=== PATIENT | male | born 1955 | race Hispanic/Latino ===

== ENCOUNTER 2017-11-15 11:43 | Emergency (ER) | payer BC ==
[2017-11-15 11:53] VITALS: TEMP 98.5
[2017-11-15 12:03] LABS: URINE BILIRUBIN NEGATIVE (NEGATIVE); URINE BLOOD NEGATIVE (NEGATIVE); URINE CLARITY Clear (Clear); URINE COLOR Straw (YELLOW); URINE GLUCOSE (UA) NORMAL (Normal); URINE LEUKOCYTE ESTERASE NEG Leu/uL (Negative); URINE PROTEIN NEGATIVE (NEGATIVE); URINE UROBILINOGEN NORMAL mg/dL (0.2-1.0)
[2017-11-15 12:51] LABS: BASO # 0.1 K/uL (0.0-0.2); BASO % 1.1 % (0.0-2.0); EOS # 0.2 K/uL (0.0-0.7); EOS % 2.4 % (0.0-4.0); LYMPH # 2.3 K/uL (1.0-4.3); LYMPH % 24.9 % (20.0-40.0); MEAN CELL VOLUME 90.5 fL (80.0-94.0); MEAN CORPUSCULAR HGB CONC 35.4 g/dL (33.0-37.0); MEAN PLATELET VOLUME 6.7 fL (7.2-11.7); MONO # 0.6 K/uL (0.0-0.8); MONO % 7.1 % (0.0-10.0); NEUT # 5.9 K/uL (1.8-7.0); NEUT % 64.5 % (50.0-75.0); RBC 3.53 Mil/uL (4.40-5.90); RED CELL DISTRIBUTION WIDTH 13.1 % (11.5-14.5)
[2017-11-15 12:58] LABS: HEMOGLOBIN 11.3 g/dL (12.0-18.0); WHITE BLOOD COUNT 9.1 K/uL (4.8-10.8)
[2017-11-15 13:03] LABS: ALB/GLOB RATIO 1.3 (1.0-2.1); ALT/SGPT 43 U/L (21-72); AST/SGOT 30 U/L (17-59); BLOOD UREA NITROGEN 23 mg/dL (9-20); CALCIUM 9.1 mg/dl (8.6-10.4); GFR AFRICAN-AMERICAN > 60; GFR NON-AFRICAN AMERICAN > 60; LIPASE 44 U/L (23-300)
[2017-11-15 13:08] LABS: INR 1.1; PROTHROMBIN TIME 12.1 SECONDS (9.7-12.2)
--- NOTE | 2017-11-15 13:38 | C.PDOC ---
Time Seen by Provider: 11/15/17 11:47 Chief Complaint (Nursing): Male Genitourinary Past Medical History Vital Signs: Last Vital Signs Temp 98.5 F 11/15/17 11:45 Pulse 80 11/15/17 11:45 Resp 20 11/15/17 11:45 BP 160/90 H 11/15/17 11:45 Pulse Ox 98 11/15/17 13:38 - Medical History PMH: Arthritis, Hypercholesterolemia Family History: States: Unknown Family Hx - Social History Hx Tobacco Use: No Hx Alcohol Use: No Hx Substance Use: No - Immunization History Hx Tetanus Toxoid Vaccination: No Hx Influenza Vaccination: No Hx Pneumococcal Vaccination: No ED Course And Treatment - Laboratory Results Result Diagrams: 11/15/17 12:46 11/15/17 12:46 O2 Sat by Pulse Oximetry: 98 Medical Decision Making Medical Decision Making: patient resting comfortably no complaints urine specimen normal in color will discharge home to follow up with pmd in 2 days Disposition Counseled Patient/Family Regarding: Studies Performed, Diagnosis, Need For Followup - Disposition Disposition: HOME/ ROUTINE Disposition Time: 13:38 Condition: STABLE Additional Instructions: follow up with your doctor in 2 days call to make an appointment continue home medications return to ER if symptoms worsens or progress Instructions: Urinalysis, Urine Culture Forms: [facility] (Georgian), General Discharge Instructions - Clinical Impression Clinical Impression: Frequency of urination
--- NOTE | 2017-11-15 13:42 | C.PDOC ---
History Of Present Illness 62-year-old male, presents to the emergency department with complaints of orange urine since this morning. Patient notes he is s/p right hip replacement on 11/03 with no complications. He notes decreased fluid intake. Denies any dysuria/frequency, pain fever, chills, or any other associated symptoms. No other complaints at this time. Time Seen by Provider: 11/15/17 11:47 Chief Complaint (Nursing): Male Genitourinary History Per: Patient History/Exam Limitations: no limitations Onset/Duration Of Symptoms: Hrs Current Symptoms Are (Timing): Still Present Severity: Moderate Past Medical History Reviewed: Historical Data, Nursing Documentation, Vital Signs Vital Signs: Last Vital Signs Temp 98.5 F 11/15/17 11:45 Pulse 75 11/15/17 14:11 Resp 18 11/15/17 14:11 BP 125/75 11/15/17 14:11 Pulse Ox 97 11/15/17 14:11 - Medical History PMH: Arthritis, Hypercholesterolemia Family History: States: No Known Family Hx - Social History Hx Tobacco Use: No Hx Alcohol Use: No Hx Substance Use: No - Immunization History Hx Tetanus Toxoid Vaccination: No Hx Influenza Vaccination: No Hx Pneumococcal Vaccination: No Review Of Systems Constitutional: Negative for: Fever, Chills Cardiovascular: Negative for: Chest Pain, Palpitations Respiratory: Negative for: Shortness of Breath Gastrointestinal: Negative for: Nausea, Vomiting, Abdominal Pain Genitourinary: Negative for: Dysuria, Frequency, Hematuria, Penile Discharge, Rash Musculoskeletal: Negative for: Back Pain Skin: Negative for: Rash Physical Exam - Physical Exam Appears: Non-toxic, No Acute Distress Skin: Normal Color, Warm, Dry, Other (surgical sight clean/dry/intact ) Head: Atraumatic, Normacephalic Eye(s): bilateral: Normal Inspection, PERRL, EOMI Nose: Normal Oral Mucosa: Moist Lips: Normal Appearing Neck: Normal ROM Chest: Symmetrical Cardiovascular: Rhythm Regular, No Murmur Respiratory: Normal Breath Sounds, No Accessory Muscle Use Gastrointestinal/Abdominal: Soft, No Tenderness Back: No CVA Tenderness Extremity: Normal ROM, No Deformity, No Swelling Neurological/Psych: Oriented x3, Normal Speech ED Course And Treatment - Laboratory Results Result Diagrams: 11/15/17 12:46 11/15/17 12:46 O2 Sat by Pulse Oximetry: 98 (RA) Pulse Ox Interpretation: Normal Medical Decision Making Medical Decision Making: Plan: * Bloodwork * Urine Culture * UA * Reassess and Disposition patient resting comfortably no complaints urine specimen normal in color will discharge home to follow up with pmd in 2 days Disposition - Disposition Disposition: HOME/ ROUTINE Disposition Time: 13:38 Condition: STABLE Additional Instructions: follow up with your doctor in 2 days call to make an appointment continue home medications return to ER if symptoms worsens or progress Instructions: Urinalysis, Urine Culture Forms: General Discharge Instructions, [facility] (Scottish) - Clinical Impression Clinical Impression: Frequency of urination - Scribe Statement The provider has reviewed the documentation as recorded by the Scribe (Sarita Gonzales) All medical record entries made by the Scribe were at my direction and personally dictated by me. I have reviewed the chart and agree that the record accurately reflects my personal performance of the history, physical exam, medical decision making, and the department course for this patient. I have also personally directed, reviewed, and agree with the discharge instructions and disposition.
[2017-11-15 14:14] VITALS: BP 125/75; PULSE 75; RESP 18
[2017-11-16 07:58] VITALS: O2SAT 98
== END 2017-11-15 14:14 | disposition home or self-care (01) ==
LOC: C.ER 11:43
DX: R35.0 Frequency of micturition (principal); Z96.641 Presence of right artificial hip joint